=== PATIENT | female | born 1960 | race Caucasian/White ===

== ENCOUNTER → 2017-12-25 | Outpatient (CLI) | payer OTHER ==
[2017-12-25 11:36] LABS: BILIRUBIN NEGATIVE (NEGATIVE); BLOOD 3+ (NEGATIVE); CLARITY CLOUDY (CLEAR); COLOR YELLOW (YELLOW); GLUCOSE NEGATIVE (NEGATIVE); KETONE NEGATIVE (NEGATIVE); LEUKO ESTERASE 3+ (NEGATIVE); NITRITE NEGATIVE (NEGATIVE); SPECIFIC GRAVITY 1.005 (1.005-1.030); UROBILINOGEN 0.2 E.U./dl (0.2-1.0)
[2017-12-25 11:42] LABS: WBC TNTC wbc/hpf (0-5)
== END | disposition home or self-care (01) ==
LOC: LAB 10:26
PROVIDERS: Psychiatry & Neurology Neurology
DX: R30.0 Dysuria (principal)

== ENCOUNTER → 2018-01-10 | Outpatient (CLI) | payer OTHER ==
[2018-01-10 13:12] LABS: BILIRUBIN NEGATIVE (NEGATIVE); BLOOD TRACE-INTACT (NEGATIVE); CLARITY CLEAR (CLEAR); COLOR YELLOW (YELLOW); GLUCOSE NEGATIVE (NEGATIVE); KETONE NEGATIVE (NEGATIVE); LEUKO ESTERASE NEGATIVE (NEGATIVE); NITRITE NEGATIVE (NEGATIVE); PH 6.5 (5.0-9.0); SPECIFIC GRAVITY <= 1.005 (1.005-1.030); UROBILINOGEN 0.2 E.U./dl (0.2-1.0)
[2018-01-10 14:03] LABS: BACTERIA TRACE; WBC 0-2 wbc/hpf (0-5)
== END | disposition home or self-care (01) ==
LOC: LAB 12:33
PROVIDERS: Internal Medicine
DX: N39.0 Urinary tract infection, site not specified (principal)

== ENCOUNTER → 2018-11-29 | Outpatient (CLI) | payer MEDICAID ==
[~2018-11-29] MED LIST: BACLOFEN5 MG PO; CLINDAMYCIN150 MG PO; DOXYCYCLINE100 M3 PO; DURAGESIC1 EAC2 T; KEPPRA1000 MG PO; NEURONTIN400 MG PO; OXYCONTIN80 M1 PO; PHARMASSURE FO0.4 MG PO; PHENERGAN25 M3 PO; PREDNISONE10 MG PO; PRILOSEC20 M1 PO; PROZAC10 MG PO; REMERON30 M1 PO; VITAMIN D-32000 UNI1 PO
--- NOTE | ~2018-11-29 | EKG ---
[place], [place] ELECTROCARDIOGRAM REPORT NAME: GERALDINE MARTINEZ UNIT #: [id number] ROOM: DOCTOR: SEAN DRAFT REPORT BIRTHDATE: [birth year] [facility] Test Date: 2018-11-29 Test Time: 14:03:19 Pat Name: GERALDINE MARTINEZ Department: Room: Gender: F Pizza Delivery: GABBY : 1960 Requested By: MARIE RHODES Order Number: [id number] Reading MD: Sudheer Kelly MD Measurements Intervals [place] Rate: 101 P: 45 AL: 155 QRS: 69 QRSD: 81 T: 10 QT: 396 QTc: 514 Interpretive Statements Sinus tachycardia Borderline T abnormalities, anterior leads Prolonged QT interval Baseline wander in lead(s) II,III,aVF Electronically Signed On 11-29-2018 18:30:02 PST by Sudheer Kelly MD CM:EKGRPT:ELECTROCARDIOGRAM REPORT 1403 1830 MARIE ANDRADEANY DRAFT REPORT MARIE RHODES
[2018-11-29 14:01] LABS: BASO # 0.1 10*3/uL (0.0-0.1); BASO % 0.6 % (0.0-1.0); EOS # 0.2 10*3/uL (0.0-0.4); EOS % 1.1 % (1.0-4.0); HEMATOCRIT 40.6 % (37.0-47.0); HEMOGLOBIN 12.9 g/dl (12.0-16.0); LYMPH # 2.6 10*3/uL (1.3-4.4); LYMPH % 19.7 % (27.0-41.0); MEAN CELL VOLUME 87.9 fl (81.0-99.0); MEAN CORPUSCULAR HGB 27.9 pg (27.0-31.0); MEAN CORPUSCULAR HGB CONC 31.8 g/dl (33.0-37.0); MONO # 0.7 10*3/uL (0.1-1.0); MONO % 4.9 % (3.0-9.0); NEUT # 9.7 10*3/uL (2.3-7.9); NEUT % 72.7 % (47.0-73.0); PLATELET COUNT AUTOMATED 409 10*3/uL (130-400); RED BLOOD COUNT 4.62 10*6/uL (4.10-5.10); RED CELL DISTRI WIDTH 13.4 % (0-14.5); WHITE BLOOD COUNT 13.3 10*3/uL (4.8-10.8)
[2018-11-29 14:15] LABS: ALBUMIN 3.4 gm/dl (3.1-4.5); BILIRUBIN, DIRECT 0.1 mg/dL (0.0-0.2); BUN 7 mg/dl (7-24); CHLORIDE 107 mmol/L (98-107); POTASSIUM 3.9 mmol/L (3.5-5.1); SODIUM 140 mmol/L (136-145)
[2018-11-29 14:30] LABS: ALKALINE PHOSPHATASE 195 U/L (45-117); CREATININE 0.82 mg/dL (0.55-1.02); FREE T4 1.05 ng/dl (0.76-1.46); PHOSPHOROUS 3.1 mg/dL (2.5-4.9); SGOT/AST 41 IU/L (3-35); SGPT/ALT 73 U/L (12-78); TOTAL PROTEIN 8.1 gm/dL (6.4-8.2)
== END | disposition home or self-care (01) ==
PROVIDERS: Internal Medicine
DX: J44.9 Chronic obstructive pulmonary disease, unspecified (principal); D33.2 Benign neoplasm of brain, unspecified; R56.9 Unspecified convulsions

== ENCOUNTER → 2018-12-04 | Day surgery (SDC) | payer MEDICAID ==
[2018-11-29 12:10] VITALS: BP 118/90
[~2018-12-04] VITALS: Ht 170.1 cm; Wt 113.4 kg
[2018-12-04] VITALS (17 sets, daily range): BP systolic 122–167; BP diastolic 63–92
--- NOTE | ~2018-12-04 | O ---
[place], [place] OPERATIVE NOTE NAME: GERALDINE MARTINEZ UNIT #: [id number] ROOM: DOCTOR: EARL ABBOTT DMD BIRTHDATE: [birth year] DOS: PREOPERATIVE DIAGNOSES: Nonrestorable maxillary and mandibular dentition and anxiety. POSTOPERATIVE DIAGNOSES: Nonrestorable maxillary and mandibular dentition and anxiety. ANESTHESIA: General anesthesia with endotracheal intubation. FLUIDS: Minimal. ESTIMATED BLOOD LOSS: Minimal. COMPLICATIONS: None. CONDITION: To PACU, stable. DESCRIPTION OF PROCEDURE: The patient was brought to the OR and placed in supine position. IV and EKG lines were placed. Endotracheal intubation and general anesthesia was administered. The patient was prepped and draped for oral procedures. Risks and benefits were explained to the patient prior to surgery. Clinical exam and x-rays taken, determined nonrestorable maxillary and mandibular dentition. PROCEDURES PERFORMED: Complete extraction of teeth #4, 5, 6, 7, 8, 9, 10, 11, 15, 17, 21, 22, 23, 24, 25, 26, 27, 28 and 29, moderate alveoplasty in the upper right, upper left, lower left and lower right quadrants. Sutured with 4-0 Vicryl. Lavaged x 2. Throat pack removed. The patient left the OR in good condition and went to the PACU. EARL ABBOTT DMD CM:OPRECORD:OPERATIVE NOTE 1132 1224 EARL ABBOTT DMD 12/05/18 1329 interface
== END | disposition home or self-care (01) ==
LOC: SDC 11-29 10:15
DX: K00.7 Teething syndrome (principal); K02.9 Dental caries, unspecified; J44.9 Chronic obstructive pulmonary disease, unspecified; K21.9 Gastro-esophageal reflux disease without esophagitis; I25.2 Old myocardial infarction; E66.01 Morbid (severe) obesity due to excess calories; Z68.41 Body mass index [BMI] 40.0-44.9, adult; Z79.899 Other long term (current) drug therapy; Z98.890 Other specified postprocedural states; Z88.1 Allergy status to other antibiotic agents; Z79.1 Long term (current) use of non-steroidal anti-inflammatories (NSAID)

== ENCOUNTER 2018-12-27 05:15 | Inpatient (IN) | payer MEDICAID ==
[2018-12-27] VITALS (8 sets, daily range): BP systolic 106–162; BP diastolic 48–113
--- NOTE | ~2018-12-27 | PROC NOTE ---
[place], [place] PROCEDURE NOTE NAME: GERALDINE MARTINEZ UNIT #: [id number] ROOM: 404 DOCTOR: VIKTOR BEGUM BIRTHDATE: [birth year] DOS: 12/27/2018 MODIFIED BARIUM SWALLOW LOCATION: [facility]. ROOM: 404. BED: 1. ORDERING PHYSICIAN: Dr. Vivi Robbins. RADIOLOGIST: Dr. Florentino. BACKGROUND INFORMATION: The patient is a 58-year-old female who was seen for modified barium swallow. This test was ordered to rule out aspiration. The patient is admitted with pneumonia and severe sepsis. Further medical history includes brain tumors, dyspnea, GERD, seizures and diverticulitis. The patient is ordered currently a regular diet and thin liquids. For today's assessment, she was alert, but noticeably ill. She endorsed dysphagia, but could not specify what her problems were. The patient had difficulty following commands throughout the procedure. She was receiving oxygen via nasal cannula. Oral peripheral examination was attempted; however, the patient was unable to fully participate, edentulous status was noted. She was not able to perform most of the oral movements attempted. METHODS AND MATERIALS USED FOR THE EXAM: The patient was positioned in the lateral plane and the exam was viewed under fluoroscopy. The patient was presented with a variety of consistencies to assess swallowing skills including applesauce mixed with barium presented in half teaspoon amounts, barium-coated cookie given in bite-size piece and thin liquid barium taken by cup. The patient was unable to hold the cup independently. Therefore, single sips were given by clinician. ORAL PHASE: The patient achieved adequate labial seal around cup and spoon with no anterior loss. Bolus formation and transit were adequate. Mastication of cookie was poor. Piecemeal swallow was observed. The patient was not able to fully complete chewing and swallowing of the cookie and did spit out the remainder of the cookie. Tongue to palate contact was within normal limits. Tongue retraction was within normal limits. Velar functioning was within normal limits with no nasal regurgitation. PHARYNGEAL PHASE: Unremarkable. ESOPHAGEAL PHASE: This phase of the swallow was not formally assessed during this exam. IMPRESSIONS AND RECOMMENDATIONS: Based upon assessment results, this 58-year-old patient presents with a kjng-er-ogkrgzsy oral dysphagia. She had difficulty masticating solid and piecemeal swallow was observed. The patient [place], [place] PROCEDURE NOTE NAME: GERALDINE MARTINEZ UNIT #: [id number] ROOM: 404 DOCTOR: VIKTOR BEGUM BIRTHDATE: [birth year] did spit out some of the solid food. No penetration, aspiration or residue was observed. Recommend the patient receive a pureed diet and thin liquids with use of universal safe swallow precautions. Follow up therapy is recommended with focus on ensuring safety with highest level diet. A message regarding diet recommendation was left for patient's nurse. Thank you very much for this referral. Should you have any questions regarding this patient, please contact the speech pathologist at [phone]. VIKTOR BEGUM CM:PROCNOTE:PROCEDURE NOTE 1423 1450 VIKTOR BEGUM
--- NOTE | ~2018-12-27 | CON ---
[place], [place] REPORT OF CONSULTATION NAME[id number] UNIT #: [id number] ROOM: 427 DOCTOR: CELENA BROOKS MDKALE BIRTHDATE: [birth year] DOS: 12/27/2018 PULMONARY CONSULTATION AND EVALUATION REQUESTING PHYSICIAN: Hospitalist service. REASON FOR CONSULTATION: Assessment of pulmonary infiltration. Possibility of pneumonia. The history was obtained from the patient's . The patient could not give me any history because of the chronic neurologic problems. HISTORY OF PRESENT ILLNESS: This is a 58-year-old white female patient who has been known with history of a brain tumor, which has been treated with stereotactic radiation therapy and brain radiation. She has been noted with chronic left hemiplegia. The patient has been noted with increased congestion and cough about 24 hours prior to admission to the hospital. The patient has been reported some ongoing coughing for the past 3 days as per the patient's . She has been admitted to the hospital on 12/27/2018. The patient has been reported with increased shortness of breath with chest congestion. She was also noted with temperature elevation as well. Concern today is possibly pneumonia. She was brought to the hospital by the EMS. She has been assessed and noted pulmonary infiltration with the CT scan of the chest as well. She has not been noted any symptoms of chest pain or hemoptysis. REVIEW OF SYSTEMS: Cannot be effectively completed because of the patient's lack of direct communication and not answering the questions effectively. PAST MEDICAL HISTORY: 1. Known with a history of glioma of the brain, which has been treated with stereotactic surgery and radiation therapy. 2. History of depression. 3. Gastroesophageal reflux. 4. Morbid obesity. 5. Seizure disorder. PAST SURGICAL HISTORY: 1. Carpal tunnel release. 2. Hip surgery on the neck. 3. Hysterectomy. 4. Cholecystectomy. 5. Back surgery. 6. CyberKnife gamma knife surgery for the glioma of the brain. SOCIAL HISTORY: The patient was noted with tobacco use in the past, but not smoking cigarettes at this time per . She is , lives at home. Denies history of alcohol use or illicit drugs. She has not been reported with history of illicit drug use and alcohol use. MEDICATIONS: Medications at home were noted with use of Duragesic patch, Prozac, Neurontin, Keppra, Remeron, Prilosec, OxyContin, and Phenergan. [place], [place] REPORT OF CONSULTATION NAME: GERALDINE MARTINEZ UNIT #: [id number] ROOM: 427 DOCTOR: KALE RAMIREZ MD BIRTHDATE: [birth year] DRUG ALLERGIES: NOTED ALLERGY TO AMOXICILLIN. PHYSICAL EXAMINATION: GENERAL: A 58-year-old female patient who has been currently resting comfortably on the bed, able to speak some sentences at this time. Using oxygen supplement via nasal cannula. Height of the patient at admission was 5 feet 7 inches, weight of 265 pounds, BMI 41. VITAL SIGNS: Vital signs for the patient which were recorded shows temperature noted at 100.2 degrees Fahrenheit to normal temperature. The respiratory rate of the patient recorded as 32 to 22 later on. The heart rate was noticed with tachycardia, heart rate 131 beats per minute, 112 later on. Blood pressure ranged 162/113 on admission and later on noted in the afternoon, blood pressure 122/58 at 1600 hours. Pulse oxygen saturation was recorded on admission on 6 liters nasal cannula was 93% saturation. HEENT: Examination shows chronic obesity. NECK: Supple. Head was atraumatic. Eyes nonicterus. CARDIOVASCULAR: S1, S2 audible. LUNGS: Scattered crackles of the lung were noted in the right side. ABDOMEN: Soft, obese, nontender. Bowel sounds present. EXTREMITIES: Noted without any edema. Chronic obesity findings. MUSCULOSKELETAL: Without acute deformities. CENTRAL NERVOUS SYSTEM: Right hemiplegia. LABORATORY DATA: CBC on admission, on 12/27/2018, WBC count 17.1, hemoglobin, hematocrit and platelet count were normal. Influenza A and B, nasal washing antigen negative on admission as well. The admission lactic acid 3.6 and followup was noted variably elevated. CMP for the patient of 12/27/2018 on admission, BUN 5, creatinine normal, glucose 121, AST 82, ALT 101, alkaline phosphatase is 240, normal troponin. PT and PTT was noted as normal. Arterial blood gas that was done yesterday, 5 liters, pH 7.36, pCO2 46, pO2 113. Urine drug screen was noted as positive for opiates, which is her home medication. Modified barium swallow was completed this afternoon. The patient was noted as normal study. CT scan of the head was done on 12/27/2018 on admission as well. No acute intracranial pathology. Craniotomy with encephalomalacia of right frontal and the parietal lobes. Low attenuation in the white matter tissue was reported with indeterminate, small ischemic vessel ischemic changes were also described. Chest x-ray of the patient was noted with patchy infiltration of the lung on admission. CT of the chest that was completed yesterday was noted without any evidence of acute pulmonary embolism. Besides it was noted with evidence of patchy nodular infiltration involving significant portion of the right lung as well as pleural base consolidation for the patient and other patchy infiltration as well was noted. There was no significant lymphadenopathy or other abnormalities as well noted in the mediastinal structures. IMPRESSION: 1. The patient will be admitted to the hospital. The patient was noted with multilobar pneumonia, most likely related to the aspiration very likely cause. Mild lymphadenopathy, mediastinal of unclear significance. Mass-like consolidation, most likely representing acute pneumonia at this time. Malignancy was non-suspected. [place], [place] REPORT OF CONSULTATION NAME: GERALDINE MARTINEZ UNIT #: [id number] ROOM: 427 [facility] [birth year] 2. History of glioma of the brain, status post surgery with a right hemiparesis. She has been noted with a normal swallow study with a modified barium swallow, but certainly my question of transient aspiration could lead to the current pneumonic presentation. 3. Signs of acute sepsis was also noted on admission as well. 4. Relative elevation of the right hemidiaphragm, possibility of right diaphragmatic paresis or paralysis cannot be completely excluded. 5. Possibility of obesity, hypoventilation syndrome, and suspicion of obstructive sleep apnea disorder. PLAN OF MANAGEMENT: Community-acquired aspiration management antibiotic would be continued. Continuation of the bronchodilators administration as well. Oxygen supplementation to be continued for the patient to maintain pulse ox 92% or greater for acute hypoxemic respiratory failure. The patient was also noted with hypercapnia, possibility of obesity, hypoventilation, also consideration for obstructive sleep apnea disorder as well. Should require assessment as an outpatient with a diagnostic sleep study as well. Other supportive therapy, plan of management, monitoring all the culture results. Current finding on the CT scan needs to be reassessed for the patient later on with a followup CT scan in about a month or so after the adequate treatment achieved for the pneumonia to exclude any abnormal process in the lungs. Other therapy, plan of management, care plan and treatment. Assessment and management has been discussed with the patient's at the bedside. Thank you for allowing me to participate in the care of the patient. KALE DALLAS MD CM:CONSTR:REPORT OF CONSULTATION 1055 12/29/18 0248 interface
--- NOTE | ~2018-12-27 | PR ---
[place], [place] PROGRESS NOTE NAME: GERALDINE MARTINEZ UNIT #: [id number] ROOM: 427 DOCTOR: CELENA BROOKS MD,KALE BIRTHDATE: [birth year] DOS: 12/29/2018 SUBJECTIVE: The patient has been doing well with current medical management, reduction in the respiratory symptoms. There were no symptoms of fever or chills or hemoptysis reported. Denies symptoms of nausea or vomiting or diarrhea. The coughing of the patient has been subsiding. The of the patient was present. She was continued on antibiotics for the current acute aspiration pneumonia. OBJECTIVE: VITAL SIGNS: For the patient which are recorded showed the temperature noted normal, respiratory rate 18, heart rate 92, blood pressure 113/54. The pulse oxygen saturation of the patient recorded as 98% at rest on room air. HEENT: Chronic obesity. Head was atraumatic. Eye nonicterus. NECK: Supple. CARDIOVASCULAR: S1, S2 audible. LUNGS: Without any wheeze or crackles. ABDOMEN: Soft and nontender. Bowel sounds present. EXTREMITIES: The patient noted without acute edema. IMPRESSION: 1. Resolving pneumonia, clinically for this patient with aspiration. 2. The patient with chronic brain tumor with left hemiplegia. PLAN OF MANAGEMENT: Chest x-ray was ordered to be done today. After assessment of the chest x-ray, if it is showing further improvement and resolution of the pneumonia, discharge planning could be made accordingly. Continue in the meantime other therapy, plan of management, care plan of treatment and therapies. KALE DALLAS MD CM:PNTRANS [id number] KALE BROOKS MD 12/29/181944 interface
--- NOTE | ~2018-12-27 | PR ---
[place], [place] PROGRESS NOTE NAME: GERALDINE MARTINEZ UNIT #: [id number] ROOM: 427 DOCTOR: KALE RAMIREZ MD BIRTHDATE: [birth year] DOS: 12/28/2018 PULMONARY PROGRESS NOTE SUBJECTIVE: The patient was seen and examined on 12/28/2018. She has been noted comfortable without any acute distress, still needing oxygen supplementation nasal cannula, does not state any acute symptoms, the patient has here been asked. She has been continued with antibiotic as well. She has not been noted with any ongoing acute hemodynamic instability. The temperature has been improving to normal temperature, in the last 24 hours, the tachycardia has also improved significantly. Blood pressure noted in the normal range. REVIEW OF SYSTEMS: Cannot be completed. OBJECTIVE: HEENT: Chronic obesity. Head was atraumatic. Eyes nonicterus. NECK: Supple. CARDIOVASCULAR: S1, S2 is audible. LUNGS: The patient was noted without any wheezing. Scattered crackles still noted in the right lung. ABDOMEN: Soft and obese. EXTREMITIES: Chronic obesity. MUSCULOSKELETAL: Chronic deformity. CENTRAL NERVOUS SYSTEM: Previously unchanged. The patient with left hemiplegia. LABORATORY DATA: CBC of this morning, WBC count 20.0, hemoglobin 10.6, hematocrit 33.4, and platelet count was normal. Urine culture was noted without any bacterial growth. CMP this morning, normal BUN and creatinine. Phosphorus 2.3, which was mildly decreased. The albumin is 2.6, which was decreased. AST and ALT noted improving. IMPRESSION: 1. Improving acute sepsis with acute pneumonia, multilobar from aspiration, treated for gram-negative community-acquired infection. 2. Chronic neurologic deficit with a glioma with left hemiparesis. 3. Chronic obesity. 4. Suspicion of obesity hypoventilation syndrome. 5. Acute respiratory failure. PLAN OF MANAGEMENT: Monitor temperature curve. Continuation of antibiotics. Monitoring the results of the culture as well as the blood. No modification of antibiotic at this time will be necessary. Continue Levaquin. Other supportive therapy, plan and management. Titrate oxygen supplementation to maintain pulse oxygen saturation 92% or greater. [place], [place] PROGRESS NOTE NAME: GERALDINE MARTINEZ UNIT #: [id number] ROOM: 427 DOCTOR: KALE RAMIREZ MD BIRTHDATE: [birth year] KALE DALLAS MD CM:ADAMA [id number] KALE BROOKS MD 01/07/19 1049 interface
--- NOTE | ~2018-12-27 | EKG ---
[place], [place] ELECTROCARDIOGRAM REPORT NAME: GERALDINE MARTINEZ UNIT #: [id number] ROOM: 404 DOCTOR: SEAN DRAFT REPORT BIRTHDATE: [birth year] [facility] Test Date: 2018-12-27 Test Time: 05:34:10 Pat Name: GERALDINE MARTINEZ Department: Room: 404 Gender: F Extrusion Bender: : 1960 Requested By: ELENA ESCAMILLA Order Number: [id number] Reading MD: Sudheer Kelly MD Measurements Intervals [place] Rate: 126 P: 44 [place]: 157 QRS: 60 QRSD: 79 T: 255 QT: 302 QTc: 438 Interpretive Statements Sinus tachycardia Aberrant complex Nonspecific repol abnormality, diffuse leads Compared to ECG 11/29/2018 14:03:19 Prolonged QT interval no longer present Electronically Signed On 12-27-2018 17:53:31 PST by Sudheer Kelly MD CM:EKGRPT:ELECTROCARDIOGRAM REPORT 0534 1753 ELENA APONTE DRAFT REPORT ELENA ESCAMILLA DO
[~2018-12-27 05:15] MED LIST changes: -DOXYCYCLINE100 M3 PO; -PHARMASSURE FO0.4 MG PO; -PREDNISONE10 MG PO; -VITAMIN D-32000 UNI1 PO
[2018-12-27 05:56] LABS: BASO # 0.1 10*3/uL (0.0-0.1); BASO % 0.5 % (0.0-1.0); EOS # 0.1 10*3/uL (0.0-0.4); EOS % 0.5 % (1.0-4.0); LYMPH # 1.3 10*3/uL (1.3-4.4); LYMPH % 7.8 % (27.0-41.0); MEAN CELL VOLUME 90.1 fl (81.0-99.0); MEAN CORPUSCULAR HGB 28.6 pg (27.0-31.0); MEAN CORPUSCULAR HGB CONC 31.7 g/dl (33.0-37.0); MONO # 0.6 10*3/uL (0.1-1.0); MONO % 3.5 % (3.0-9.0); NEUT # 14.9 10*3/uL (2.3-7.9); NEUT % 87.2 % (47.0-73.0); PLATELET COUNT AUTOMATED 347 10*3/uL (130-400); RED BLOOD COUNT 4.55 10*6/uL (4.10-5.10); RED CELL DISTRI WIDTH 13.6 % (0-14.5); WHITE BLOOD COUNT 17.1 10*3/uL (4.8-10.8)
--- NOTE | 2018-12-27 06:05 | NUR ---
CRITICAL LACTIC ACID 3.[address] ESCAMILLA.
[2018-12-27 06:16] LABS: ALBUMIN 3.1 gm/dl (3.1-4.5); ALKALINE PHOSPHATASE 214 U/L (45-117); BUN 5 mg/dl (7-24); CHLORIDE 106 mmol/L (98-107); POTASSIUM 3.8 mmol/L (3.5-5.1); SGOT/AST 82 IU/L (3-35); SGPT/ALT 101 U/L (12-78); SODIUM 142 mmol/L (136-145); TOTAL PROTEIN 7.7 gm/dL (6.4-8.2)
[2018-12-27 06:19] LABS: TROPONIN I < 0.015 ng/ml (<0.045)
[2018-12-27 06:29] LABS: ACT PARTIAL THROMBO TIME 22.7 SECONDS (20.8-31.5); INTERNATIONAL NORM RATIO 0.9 (2.0-3.5)
--- NOTE | 2018-12-27 07:10 | NUR ---
REPORT FROM [facility] AT THIS TIME. PATIENT RETURNS FROM CT SCAN. BENCH GRINDER STATES THAT PATIENT HAS BEEN URINARY INCONTINENT. PATIENT HAS BEEN CLEANED UP AT THIS TIME NEW GOWN AND SHEETS. HILLS CATH PLACED INTO PATIENT.
[2018-12-27 08:19] LABS: BILIRUBIN NEGATIVE (NEGATIVE); BLOOD 1+ (NEGATIVE); CLARITY CLEAR (CLEAR); COLOR YELLOW (YELLOW); GLUCOSE NEGATIVE (NEGATIVE); KETONE NEGATIVE (NEGATIVE); LEUKO ESTERASE NEGATIVE (NEGATIVE); NITRITE NEGATIVE (NEGATIVE); PH 5.5 (5.0-9.0); SPECIFIC GRAVITY <= 1.005 (1.005-1.030); UROBILINOGEN 0.2 E.U./dl (0.2-1.0)
[2018-12-27 08:27] LABS: BACTERIA TRACE
--- NOTE | 2018-12-27 09:09 | NUR ---
PATIENT HAS FENTANYL PATCH NOTED TO HER LEFT UPPER ARM.
--- NOTE | 2018-12-27 09:45 | NUR ---
ATTEMPTED TO CALL NURSE FOR PATIENT TRANSPORT TO ROOM.
--- NOTE | 2018-12-27 09:49 | NUR ---
CALLED ADMITTING NURSE PHONE AGAIN. PATIENT TO WAIT 10 MINUTES BEFORE BEING TAKEN TO FLOOR PER NURSES REQUEST.
--- NOTE | 2018-12-27 10:00 | NUR ---
PATIENT TAKEN TO 4TH FLOOR AT THIS TIME BY THIS NURSE.
--- NOTE | 2018-12-27 10:20 | NUR ---
BEDSIDE REPORT GIVEN TO [facility].
--- NOTE | 2018-12-27 10:25 | NUR ---
MED REC UPDATED PER LIST PT PROVIDED FROM CHERRY ANDREWS.
--- NOTE | 2018-12-27 10:41 | NUR ---
DR CHAU MADE AWARE OF CRITICAL LACTIC ACID LEVEL OF 3.0; ALSO THAT PT'S MED REC IS UPDATED AND VERIFIED.
[2018-12-27 11:29] LABS: ABG BASE EXCESS 0.3 mmol/L (-2.0-2.0); ABG HCO3 25.1 mmol/l (22-26); ABG O2 SATURATION 98.1 % (95-97); ARTERIAL BLOOD GAS PCO2 46.2 mmHg (35-45); ARTERIAL BLOOD GAS PH 7.36 (7.35-7.45)
--- NOTE | 2018-12-27 14:11 | NUR ---
SPEECH PATHOLOGY Modified barium swallow completed as per orders. patient is admitted with pneumonia and sepsis. Further medical hx includes seizures, brain tumors and GERD. Patient was alert but ill and with difficulty following commands throughout procedure. She endorsed difficulty with swallowing but was not able to specify what her problems were. She was assessed with puree, solid and thin liquid. Mild-moderate oral dysphagia was displayed. Patient had difficulty masticating solid (cookie) with piecemeal swallow observed. She was not able to fully chew and swallow the cookie and spit out the remainder. There was no penetration, aspiration or residue observed. Recommend a pureed diet and thin liquid with use of universal safe swallow precautions. Follow up therapy is recommended to focus on safety with highest level diet. A message regarding diet recommendation was left for patient's nurse. Dictated report to follow. Thank you for this referral. VIKTOR BEGUM MSCCC-BRAID MAKER
[2018-12-27 14:18] LABS: URINE AMPHETAMINES < 1000 (1000ng/ml); URINE BARBITURATES < 200 (200ng/ml); URINE BENZODIAZEPINES < 200 (200ng/ml); URINE CANNABINOIDS (THC) < 50 (50ng/ml); URINE COCAINE < 300 (300ng/ml); URINE METHADONE < 300 (300ng/ml)
[2018-12-27 14:20] LABS: URINE OPIATES > 300 (300ng/ml)
[2018-12-27 14:23] LABS: URINE PHENCYCLIDINE < 25 (25ng/ml)
--- NOTE | 2018-12-27 15:08 | NUR ---
MEDICATED WITH TYLENOL PER PRN ORDER FOR COMPLAINTS OF HEADACHE, ALSO GIVEN FOR LOW GRADE TEMP. FENTANYL PATCH CHANGED AT THIS TIME PER ORDER, NEW PATCH APPLIED TO LEFT ARM.
--- NOTE | 2018-12-27 15:23 | NUR ---
SPEECH RECOMMENDED PUREED DIET AND THIN LIQUIDS, DR CHAU INFORMED.
[2018-12-27] MEDS ORDERED: BACLOFEN5 MG PO (16:56)
--- NOTE | 2018-12-27 17:00 | NUR ---
DR DALLAS NOTIFIED OF NEW CONSULT. STATES HE WILL BE IN TO SEE PT.
--- NOTE | 2018-12-27 17:18 | NUR ---
DR CHAU MADE AWARE THAT BACLOFEN WAS MISSING FROM PT'S MED REC, BACLOFEN ADDED PER CLAIM HISTORY.
[2018-12-28] VITALS: BP 96/46
[2018-12-28 06:12] LABS: ALBUMIN 2.6 gm/dl (3.1-4.5); BUN 9 mg/dl (7-24); CHLORIDE 111 mmol/L (98-107); CHOLESTEROL 145 mg/dL (<200); CREATININE 0.69 mg/dL (0.55-1.02); PHOSPHOROUS 2.3 mg/dL (2.5-4.9); POTASSIUM 3.6 mmol/L (3.5-5.1); SGOT/AST 57 IU/L (3-35); SGPT/ALT 87 U/L (12-78); SODIUM 144 mmol/L (136-145); TRIGLYCERIDES 89 mg/dl (<150); VLDL CHOLESTEROL 18 mg/dL (6-40)
[2018-12-28 06:19] LABS: ALKALINE PHOSPHATASE 146 U/L (45-117); FREE T4 0.95 ng/dl (0.76-1.46); HDL CHOLESTEROL 42 mg/dl (40-60); LDL CHOLESTEROL 85 mg/dL (9-159); THYROID STIM HORMONE (HS) 0.509 uIU/ml (0.358-4.75); TOTAL PROTEIN 6.5 gm/dL (6.4-8.2)
[2018-12-28 07:18] LABS: VITAMIN D, 25-HYDROXY 8.7 ng/mL (30-100)
[2018-12-28 07:57] LABS: BASO % 0.2 % (0.0-1.0); EOS % 0.1 % (1.0-4.0); LYMPH # 2.3 10*3/uL (1.3-4.4); LYMPH % 11.3 % (27.0-41.0); MEAN CELL VOLUME 90.3 fl (81.0-99.0); MEAN CORPUSCULAR HGB 28.6 pg (27.0-31.0); MEAN CORPUSCULAR HGB CONC 31.7 g/dl (33.0-37.0); MEAN PLATELET VOLUME 9.7 fl (9.6-12.3); MONO # 1.1 10*3/uL (0.1-1.0); MONO % 5.3 % (3.0-9.0); NEUT # 16.5 10*3/uL (2.3-7.9); NEUT % 82.4 % (47.0-73.0); PLATELET COUNT AUTOMATED 333 10*3/uL (130-400); RED CELL DISTRI WIDTH 14.2 % (0-14.5)
[2018-12-28 08:00] VITALS: BP 104/62
[2018-12-28 08:15] LABS: HEMATOCRIT 33.4 % (37.0-47.0); HEMOGLOBIN 10.6 g/dl (12.0-16.0)
--- NOTE | 2018-12-28 08:50 | NUR ---
Occupational Therapy evaluation completed on 4 with full eval to follow. Precautions include fall risk, bed alarm,seizure prec,impulsive, impaired cognition,max/dep +2 xfers, high complexity level 38690 via chart review, testing and evaluation Recommend OT per POC and SNF to enable improved ADLs, functional mobility and safety for return home w/. Thank you for this referral. Belen Haro OTR/l
--- NOTE | 2018-12-28 09:00 | NUR ---
Composition Tile Layer in to talk to patient. Patient states lives at home with . There are no steps in the home. Physician: jeb [facility]acy: [facility] Home health services: doesn't think there is any Patient's level of ADLs: MODERATE ASSIST Patient has working utilities: all working DME: quad cane Follow-up physician's appointment after d/c: will be made by hospitalist nurse director upon discharge Does patient want to access PORTAL?: no Discharge plan discussed with patient, patient states she lives at home, discussed with her a discharge plan and she wasn't sure if she needed anything, will talk with regarding discharge plan. JC TSANG
--- NOTE | 2018-12-28 09:06 | NUR ---
PHYSICAL THERAPY PAtient evaluated on 4, full evaluation to follow. Continue with PT as per plan of care with fall, max(A) x 2, left hemiparesis and alarms prcautions. Recommend flores to chair/bed and staff aware. May benefit from SNF for impaired funcitional mobility. PAtient is high complexity via chart review, tests and evaluation: 10004. Thank you for this referral. Luna Espinosa,PT
--- NOTE | 2018-12-28 10:26 | NUR ---
PT'S HERE AT THIS TIME, STATING SHE HAS TO USE THE BEDSIDE COMMODE, EXPLAINED TO THAT PT WAS EVALUATED BY THERAPY TODAY AND THEY RECCOMEND A MARIIA LIFT, PT IS A MAX ASSIST AND A HIGH FALL RISK, PT DOES NOT BEAR HER WEIGHT WITH HER LEGS. INSISTENT HE GETS HER UP AND ABOUT ALL THE TIME AT HOME AND HE WILL GET HER UP. ATTEMPTED TO GET PT UP TO BEDSIDE, PT EXTREMELY UNSTEADY AND PT ALMOST FELL, STAFF ASSISTED WITH PT. ENCOURAGED TO CALL TO CALL STAFF TO ASSIST HIM WITH PT TO ATTEMPT PREVENTING FALLS, EXPLAINED WE COULD UTILIZE A BEDPAN UNTIL PT REGAINS SOME OF HER STRENGTH, STATES HE WILL GET HER UP. BED ALARM MAINTAINED FOR SAFETY. DR MARTINEZ UPDATED ON SITUATION.
--- NOTE | 2018-12-28 13:30 | NUR ---
INSISTENT ON WALKING PT TO BATHROOM, PT VERY UNSTEADY AND FEET APPEAR TO BE SLIPPING FROM UNDER HER. WAS SUCCESSFUL WITH TRANSFER, ALTHOUGH RE-EDUCATED ON USE OF BEDPAN FOR SAFETY. STATES HE GETS HER UP AT HOME AND WANTS TO KEEP HER MOVING. BED ALARM REACTIVATED, ENCOURAGED TO CALL FOR ASSISTANCE.
--- NOTE | 2018-12-28 13:49 | NUR ---
SPEECH THERAPY Patient seen this morning at breakfast. Patient reclined upon clinician arrival and required re-positioning to an upright position. Patient demonstrating imulsive rate of intake and sip size during treatment. As patient was being reclined back for repositioning, patient reached for her drink and began taking sips in a reclined position. When repositioned upright in bed, patient continued to demonstrate impulsive rate of intake and sip size. Patient required cues to slow down rate of intake and alternate between solids and liquids. Patient demonstrating tolerance of puree diet and thin liquids as no overt s/s of penetration/aspiration or oral residue following meal observed. However, patient requires cues to perform safe swallowing strategies such as slow rate of intake, small bites and sips, and sitting in upright position during all PO intake. Currently patient appears to tolerate recommended diet, but with reduced levels of safety awarness. Continue short term treatment to increase independence of safe swallowing strategies. Ramona Erazo MA [employer] MACHINE OPERATOR
[2018-12-28 16:00] VITALS: BP 122/98
[2018-12-28 20:00] VITALS: BP 130/74
[2018-12-29] VITALS: BP 120/73
[2018-12-29 06:20] LABS: BASO # 0.1 10*3/uL (0.0-0.1); BASO % 0.5 % (0.0-1.0); EOS # 0.1 10*3/uL (0.0-0.4); EOS % 0.5 % (1.0-4.0); HEMATOCRIT 33.9 % (37.0-47.0); HEMOGLOBIN 10.5 g/dl (12.0-16.0); LYMPH # 3.1 10*3/uL (1.3-4.4); LYMPH % 19.8 % (27.0-41.0); MEAN CELL VOLUME 90.9 fl (81.0-99.0); MEAN CORPUSCULAR HGB 28.2 pg (27.0-31.0); MEAN PLATELET VOLUME 9.6 fl (9.6-12.3); MONO # 1.1 10*3/uL (0.1-1.0); MONO % 7.2 % (3.0-9.0); NEUT # 11.3 10*3/uL (2.3-7.9); NEUT % 71.2 % (47.0-73.0); PLATELET COUNT AUTOMATED 332 10*3/uL (130-400); RED BLOOD COUNT 3.73 10*6/uL (4.10-5.10); RED CELL DISTRI WIDTH 14.6 % (0-14.5); WHITE BLOOD COUNT 15.8 10*3/uL (4.8-10.8)
[2018-12-29 06:47] LABS: ALBUMIN 2.7 gm/dl (3.1-4.5); ALKALINE PHOSPHATASE 140 U/L (45-117); BUN 11 mg/dl (7-24); CHLORIDE 111 mmol/L (98-107); CREATININE 0.79 mg/dL (0.55-1.02); POTASSIUM 3.6 mmol/L (3.5-5.1); SGOT/AST 38 IU/L (3-35); SGPT/ALT 74 U/L (12-78); SODIUM 144 mmol/L (136-145); TOTAL PROTEIN 6.6 gm/dL (6.4-8.2)
[2018-12-29 06:48] LABS: PHOSPHOROUS 2.5 mg/dL (2.5-4.9)
[2018-12-29 08:00] VITALS: BP 113/54
--- NOTE | 2018-12-29 10:59 | NUR ---
PT SENT TO XRAY VIA CART
[2018-12-29 12:00] VITALS: BP 148/90
--- NOTE | 2018-12-29 12:01 | NUR ---
PHYSICAL THERAPY Attempted to see pt this date-- pt's states she has been out of bed already today and may be going home; pt also states she has been out of bed and just wanted to relax. Diane Lei, WILL CALL CLERK
[2018-12-29] MEDS ORDERED: DOXYCYCLINE100 M3 PO (12:04)
[2018-12-29] MEDS ORDERED: PREDNISONE10 MG PO (12:04)
[2018-12-29] MEDS ORDERED: PHARMASSURE FO0.4 MG PO (12:04)
[2018-12-29] MEDS ORDERED: VITAMIN D-32000 UNI1 PO (12:05)
--- NOTE | 2018-12-29 13:36 | NUR ---
pt iv infiltrated, attempted to start iv x2, unsuccessful. dr. meeks made aware.
--- NOTE | 2018-12-29 14:41 | NUR ---
IV REMOVED, AWARE PT WILL BE D/C HOME TODAY. NEW RX SENT TO PHARMACY AND FILLED, GOING TO RETURN TO SERVICE INSPECTOR NEW RX AND THEN WILL ASSIST PATIENT INTO WHEELCHAIR AND WILL TAKE HER HOME VIA CAR.
--- NOTE | 2018-12-29 14:49 | NUR ---
Discharge instructions reviewed with patient/family. Patient receptive and verbalizes understanding. Follow-up care understood. Written instructions given to patient/family. SMITHA BROWN
--- NOTE | 2018-12-29 15:01 | NUR ---
pt getting her dressed and will get her in the wheelchair and take her home via car
--- NOTE | 2018-12-29 15:15 | NUR ---
discharged via wheelchair
--- NOTE | 2018-12-31 07:50 | NUR ---
PHYSICAL THERAPY CO-SIGN I approve of the Phyical Therapy notes written above. EMMETT GALINDO PT
== END 2018-12-29 15:15 | disposition home or self-care (01) | DRG 871 ==
LOC: ED 05:15 → 4E 09:13 → EDHOLD 09:13 → 4E 09:20
PROVIDERS: Emergency Medicine; Internal Medicine; Student in an Organized Health Care Education/Training Program; ADMIT Internal Medicine
PROC: BD1BYZZ Fluoroscopy of Mouth/Oropharynx using Other Contrast (ICD-10-PCS; principal; 2018-12-27)
PROC: BD11YZZ Fluoroscopy of Esophagus using Other Contrast (ICD-10-PCS; 2018-12-27)
DX: A41.9 Sepsis, unspecified organism (principal); J18.9 Pneumonia, unspecified organism; J96.02 Acute respiratory failure with hypercapnia; E87.2 Acidosis; E44.1 Mild protein-calorie malnutrition; Z68.41 Body mass index [BMI] 40.0-44.9, adult; C71.9 Malignant neoplasm of brain, unspecified; R65.20 Severe sepsis without septic shock; K21.9 Gastro-esophageal reflux disease without esophagitis; E66.01 Morbid (severe) obesity due to excess calories; F32.9 Major depressive disorder, single episode, unspecified; G40.909 Epilepsy, unspecified, not intractable, without status epilepticus; G56.00 Carpal tunnel syndrome, unspecified upper limb; R74.0 Nonspecific elevation of levels of transaminase and lactic acid dehydrogenase [LDH]; D72.819 Decreased white blood cell count, unspecified; R73.9 Hyperglycemia, unspecified; R31.21 Asymptomatic microscopic hematuria; G89.3 Neoplasm related pain (acute) (chronic); E66.9 Obesity, unspecified; E87.8 Other disorders of electrolyte and fluid balance, not elsewhere classified; E55.9 Vitamin D deficiency, unspecified; D64.9 Anemia, unspecified; E53.8 Deficiency of other specified B group vitamins; Z90.710 Acquired absence of both cervix and uterus; Z90.49 Acquired absence of other specified parts of digestive tract; Z87.891 Personal history of nicotine dependence; Z88.1 Allergy status to other antibiotic agents

== ENCOUNTER → 2019-11-01 | Outpatient (CLI) | payer MEDICAID ==
[~2019-11-01] MED LIST changes: +DOXYCYCLINE100 M3 PO; +PHARMASSURE FO0.4 MG PO; +PREDNISONE10 MG PO; +VITAMIN D-32000 UNI1 PO
[2019-11-01 14:20] LABS: CREATININE 0.79 mg/dL (0.55-1.02)
== END | disposition home or self-care (01) ==
LOC: MRI 13:37
PROVIDERS: Radiology Diagnostic Radiology
DX: C71.9 Malignant neoplasm of brain, unspecified (principal)

== ENCOUNTER 2020-05-24 14:14 | Emergency (ER) | payer MEDICAID ==
[2020-05-24 14:48] LABS: BASO # 0.1 10*3/uL (0.0-0.1); BASO % 0.4 % (0.0-1.0); EOS % 0.1 % (1.0-4.0); HEMATOCRIT 40.7 % (37.0-47.0); LYMPH # 0.7 10*3/uL (1.3-4.4); LYMPH % 3.6 % (27.0-41.0); MEAN CELL VOLUME 86.8 fl (81.0-99.0); MEAN CORPUSCULAR HGB 27.9 pg (27.0-31.0); MEAN CORPUSCULAR HGB CONC 32.2 g/dl (33.0-37.0); MEAN PLATELET VOLUME 9.1 fl (9.6-12.3); MONO # 1.1 10*3/uL (0.1-1.0); MONO % 5.6 % (3.0-9.0); NEUT # 17.9 10*3/uL (2.3-7.9); NEUT % 89.7 % (47.0-73.0); PLATELET COUNT AUTOMATED 336 10*3/uL (130-400); RED BLOOD COUNT 4.69 10*6/uL (4.10-5.10); RED CELL DISTRI WIDTH 14.1 % (0-14.5); WHITE BLOOD COUNT 19.9 10*3/uL (4.8-10.8)
[2020-05-24 15:05] LABS: ALBUMIN 3.3 gm/dl (3.1-4.5); ALKALINE PHOSPHATASE 176 U/L (45-117); BUN 8 mg/dl (7-24); CHLORIDE 105 mmol/L (98-107); CREATININE 0.88 mg/dL (0.55-1.02); SGOT/AST 53 IU/L (3-35); SGPT/ALT 75 U/L (12-78); SODIUM 140 mmol/L (136-145)
[2020-05-24 15:54] LABS: BILIRUBIN NEGATIVE (NEGATIVE); CLARITY CLEAR (CLEAR); COLOR YELLOW (YELLOW); GLUCOSE NEGATIVE (NEGATIVE)
[2020-05-24 15:55] LABS: BLOOD 1+ (NEGATIVE); KETONE NEGATIVE (NEGATIVE); LEUKO ESTERASE NEGATIVE (NEGATIVE); NITRITE NEGATIVE (NEGATIVE); PH 7.5 (5.0-9.0); UROBILINOGEN 0.2 E.U./dl (0.2-1.0)
[2020-05-24 15:56] LABS: BACTERIA TRACE
== END 2020-05-24 18:27 | disposition home or self-care (01) ==
LOC: ED 14:14
PROVIDERS: Emergency Medicine
DX: D72.829 Elevated white blood cell count, unspecified (principal); K21.9 Gastro-esophageal reflux disease without esophagitis; Z88.1 Allergy status to other antibiotic agents; Z79.899 Other long term (current) drug therapy; Z87.891 Personal history of nicotine dependence

== ENCOUNTER 2020-05-26 08:37 | Inpatient (IN) | payer MEDICAID ==
[2020-05-26] VITALS (7 sets, daily range): BP systolic 101–127; BP diastolic 47–69
[~2020-05-26] VITALS: Ht 167.6 cm; Wt 126.8 kg
[2020-05-26 09:06] LABS: BASO # 0.1 10*3/uL (0.0-0.1); BASO % 0.3 % (0.0-1.0); EOS % 0.1 % (1.0-4.0); HEMATOCRIT 38.9 % (37.0-47.0); LYMPH # 1.2 10*3/uL (1.3-4.4); LYMPH % 5.9 % (27.0-41.0); MEAN CELL VOLUME 86.8 fl (81.0-99.0); MEAN CORPUSCULAR HGB 27.7 pg (27.0-31.0); MEAN CORPUSCULAR HGB CONC 31.9 g/dl (33.0-37.0); MEAN PLATELET VOLUME 9.2 fl (9.6-12.3); MONO # 0.7 10*3/uL (0.1-1.0); MONO % 3.3 % (3.0-9.0); NEUT # 18.7 10*3/uL (2.3-7.9); NEUT % 89.4 % (47.0-73.0); PLATELET COUNT AUTOMATED 300 10*3/uL (130-400); RED BLOOD COUNT 4.48 10*6/uL (4.10-5.10); RED CELL DISTRI WIDTH 14.3 % (0-14.5); WHITE BLOOD COUNT 20.8 10*3/uL (4.8-10.8)
[2020-05-26 09:17] LABS: ACT PARTIAL THROMBO TIME 30.8 SECONDS (20.0-32.1); INTERNATIONAL NORM RATIO 1.1 (2.0-3.5)
[2020-05-26 09:22] LABS: ALBUMIN 2.6 gm/dl (3.1-4.5); ALKALINE PHOSPHATASE 151 U/L (45-117); BUN 13 mg/dl (7-24); CHLORIDE 104 mmol/L (98-107); CREATININE 1.06 mg/dL (0.55-1.02); POTASSIUM 3.4 mmol/L (3.5-5.1); SGOT/AST 44 IU/L (3-35); SGPT/ALT 60 U/L (12-78); SODIUM 138 mmol/L (136-145); TOTAL PROTEIN 7.4 gm/dL (6.4-8.2)
[2020-05-26 09:27] LABS: TROPONIN I < 0.015 ng/ml (<0.045)
[2020-05-26 12:28] LABS: BACTERIA 3+; BILIRUBIN NEGATIVE (NEGATIVE); BLOOD 2+ (NEGATIVE); CLARITY SL CLOUDY (CLEAR); COLOR YELLOW (YELLOW); GLUCOSE NEGATIVE (NEGATIVE); KETONE NEGATIVE (NEGATIVE); LEUKO ESTERASE 1+ (NEGATIVE); NITRITE POSITIVE (NEGATIVE); UROBILINOGEN 0.2 E.U./dl (0.2-1.0); WBC TNTC wbc/hpf (0-5)
[2020-05-26] MEDS ORDERED: GABAPENTIN100 M2 PO (12:54)
[2020-05-26] MEDS ORDERED: COLACE100 MG PO (13:02)
[2020-05-27] VITALS: BP 118/70
[2020-05-27 07:09] LABS: BASO % 0.3 % (0.0-1.0); EOS # 0.1 10*3/uL (0.0-0.4); EOS % 0.5 % (1.0-4.0); HEMATOCRIT 37.1 % (37.0-47.0); LYMPH # 1.9 10*3/uL (1.3-4.4); LYMPH % 12.7 % (27.0-41.0); MEAN CELL VOLUME 89.2 fl (81.0-99.0); MEAN CORPUSCULAR HGB 27.6 pg (27.0-31.0); MEAN PLATELET VOLUME 9.3 fl (9.6-12.3); MONO # 0.7 10*3/uL (0.1-1.0); NEUT # 11.8 10*3/uL (2.3-7.9); NEUT % 80.4 % (47.0-73.0); PLATELET COUNT AUTOMATED 274 10*3/uL (130-400); RED BLOOD COUNT 4.16 10*6/uL (4.10-5.10); RED CELL DISTRI WIDTH 14.6 % (0-14.5); WHITE BLOOD COUNT 14.7 10*3/uL (4.8-10.8)
[2020-05-27 07:14] LABS: ACT PARTIAL THROMBO TIME 30.4 SECONDS (20.0-32.1)
[2020-05-27 07:35] LABS: ALBUMIN 2.3 gm/dl (3.1-4.5); ALKALINE PHOSPHATASE 162 U/L (45-117); BUN 8 mg/dl (7-24); CHLORIDE 108 mmol/L (98-107); CREATININE 0.79 mg/dL (0.55-1.02); POTASSIUM 3.6 mmol/L (3.5-5.1); SGOT/AST 116 IU/L (3-35); SODIUM 140 mmol/L (136-145); TOTAL PROTEIN 6.9 gm/dL (6.4-8.2)
[2020-05-27 07:38] LABS: SGPT/ALT 93 U/L (12-78)
[2020-05-27 08:00] VITALS: BP 120/52
[2020-05-27 12:00] VITALS: BP 113/68
[2020-05-27 16:00] VITALS: BP 104/67
[2020-05-27 20:00] VITALS: BP 116/53
[2020-05-27 22:59] LABS: BILIRUBIN NEGATIVE (NEGATIVE); BLOOD 2+ (NEGATIVE); CLARITY SL CLOUDY (CLEAR); COLOR YELLOW (YELLOW); GLUCOSE NEGATIVE (NEGATIVE); KETONE NEGATIVE (NEGATIVE); LEUKO ESTERASE 2+ (NEGATIVE); NITRITE NEGATIVE (NEGATIVE); SPECIFIC GRAVITY 1.015 (1.005-1.030); UROBILINOGEN 0.2 E.U./dl (0.2-1.0)
[2020-05-27 23:14] LABS: BACTERIA 1+; RBC 31-40 rbc/hpf (0-2); WBC 41-50 wbc/hpf (0-5)
[2020-05-28] VITALS: BP 120/80
[2020-05-28 06:15] LABS: BASO # 0.1 10*3/uL (0.0-0.1); BASO % 0.5 % (0.0-1.0); EOS # 0.2 10*3/uL (0.0-0.4); EOS % 1.8 % (1.0-4.0); HEMATOCRIT 38.4 % (37.0-47.0); LYMPH % 17.1 % (27.0-41.0); MEAN CELL VOLUME 89.9 fl (81.0-99.0); MEAN CORPUSCULAR HGB 27.4 pg (27.0-31.0); MEAN CORPUSCULAR HGB CONC 30.5 g/dl (33.0-37.0); MEAN PLATELET VOLUME 9.1 fl (9.6-12.3); MONO # 0.9 10*3/uL (0.1-1.0); NEUT # 8.3 10*3/uL (2.3-7.9); NEUT % 71.5 % (47.0-73.0); PLATELET COUNT AUTOMATED 297 10*3/uL (130-400); RED BLOOD COUNT 4.27 10*6/uL (4.10-5.10); RED CELL DISTRI WIDTH 14.6 % (0-14.5); WHITE BLOOD COUNT 11.6 10*3/uL (4.8-10.8)
[2020-05-28 06:30] LABS: ALBUMIN 2.3 gm/dl (3.1-4.5); ALKALINE PHOSPHATASE 178 U/L (45-117); BUN 6 mg/dl (7-24); CHLORIDE 108 mmol/L (98-107); POTASSIUM 3.7 mmol/L (3.5-5.1); SGOT/AST 102 IU/L (3-35); SGPT/ALT 119 U/L (12-78); SODIUM 142 mmol/L (136-145); TOTAL PROTEIN 6.9 gm/dL (6.4-8.2)
[2020-05-28 08:00] VITALS: BP 126/64
[2020-05-28 12:00] VITALS: BP 130/66
[2020-05-28 16:00] VITALS: BP 139/70
[2020-05-28 20:00] VITALS: BP 126/66
[2020-05-29] VITALS: BP 127/67
[2020-05-29 04:00] VITALS: BP 115/52
[2020-05-29 09:28] LABS: ALBUMIN 2.1 gm/dl (3.1-4.5); ALKALINE PHOSPHATASE 175 U/L (45-117); BUN 5 mg/dl (7-24); CHLORIDE 108 mmol/L (98-107); POTASSIUM 3.6 mmol/L (3.5-5.1); SGOT/AST 76 IU/L (3-35); SGPT/ALT 107 U/L (12-78); SODIUM 143 mmol/L (136-145); TOTAL PROTEIN 6.8 gm/dL (6.4-8.2)
[2020-05-29 09:33] LABS: BASO # 0.1 10*3/uL (0.0-0.1); BASO % 0.6 % (0.0-1.0); EOS # 0.2 10*3/uL (0.0-0.4); EOS % 1.8 % (1.0-4.0); HEMATOCRIT 36.8 % (37.0-47.0); LYMPH # 1.5 10*3/uL (1.3-4.4); MEAN CELL VOLUME 88.9 fl (81.0-99.0); MEAN CORPUSCULAR HGB 27.5 pg (27.0-31.0); MEAN PLATELET VOLUME 9.1 fl (9.6-12.3); MONO # 0.8 10*3/uL (0.1-1.0); MONO % 7.4 % (3.0-9.0); NEUT # 7.7 10*3/uL (2.3-7.9); NEUT % 73.9 % (47.0-73.0); PLATELET COUNT AUTOMATED 309 10*3/uL (130-400); RED BLOOD COUNT 4.14 10*6/uL (4.10-5.10); RED CELL DISTRI WIDTH 14.6 % (0-14.5); WHITE BLOOD COUNT 10.5 10*3/uL (4.8-10.8)
[2020-05-29 12:00] VITALS: BP 118/68
== END 2020-05-29 15:08 | disposition other institution (70) | DRG 720 ==
LOC: ED 08:37 → EDHOLD 11:13 → 5E 11:13
PROVIDERS: Emergency Medicine; Family Medicine; Hospitalist; Student in an Organized Health Care Education/Training Program; ADMIT Internal Medicine
DX: A41.89 Other specified sepsis (principal); R65.20 Severe sepsis without septic shock; N17.9 Acute kidney failure, unspecified; E87.6 Hypokalemia; R73.9 Hyperglycemia, unspecified; R74.0 Nonspecific elevation of levels of transaminase and lactic acid dehydrogenase [LDH]; N39.0 Urinary tract infection, site not specified; K21.9 Gastro-esophageal reflux disease without esophagitis; G40.909 Epilepsy, unspecified, not intractable, without status epilepticus; E66.01 Morbid (severe) obesity due to excess calories; E55.9 Vitamin D deficiency, unspecified; K83.8 Other specified diseases of biliary tract; F32.9 Major depressive disorder, single episode, unspecified; B95.5 Unspecified streptococcus as the cause of diseases classified elsewhere; K83.1 Obstruction of bile duct; B95.2 Enterococcus as the cause of diseases classified elsewhere; E53.8 Deficiency of other specified B group vitamins; L03.116 Cellulitis of left lower limb; G89.29 Other chronic pain; E43 Unspecified severe protein-calorie malnutrition; B00.1 Herpesviral vesicular dermatitis; Z68.41 Body mass index [BMI] 40.0-44.9, adult; Z88.1 Allergy status to other antibiotic agents; Z90.49 Acquired absence of other specified parts of digestive tract; Z90.710 Acquired absence of both cervix and uterus; Z98.891 History of uterine scar from previous surgery; Z87.891 Personal history of nicotine dependence; Z79.899 Other long term (current) drug therapy; Z88.0 Allergy status to penicillin

== ENCOUNTER → 2020-08-21 | Outpatient (CLI) | payer MEDICAID ==
[~2020-08-21] MED LIST changes: +COLACE100 MG PO; +GABAPENTIN100 M2 PO
== END | disposition home or self-care (01) ==
LOC: ORTHO 13:32
PROVIDERS: ATTEND Psychiatry & Neurology Psychiatry
DX: M25.512 Pain in left shoulder (principal)

== ENCOUNTER → 2020-12-21 | Outpatient (CLI) | payer MEDICAID ==
[2020-12-21 12:21] LABS: ALBUMIN 3.4 gm/dl (3.1-4.5); BILIRUBIN, DIRECT 0.2 mg/dL (0.0-0.2); TOTAL PROTEIN 7.7 gm/dL (6.4-8.2)
== END | disposition home or self-care (01) ==
LOC: LAB 11:47
PROVIDERS: ATTEND Internal Medicine Gastroenterology
DX: Z01.812 Encounter for preprocedural laboratory examination (principal); K83.8 Other specified diseases of biliary tract

== ENCOUNTER → 2021-02-05 | Outpatient (CLI) | payer MEDICAID ==
[2021-02-05 12:55] LABS: BUN 9 mg/dl (7-24); CREATININE 0.78 mg/dL (0.55-1.02)
== END | disposition home or self-care (01) ==
LOC: MRI 02-01 13:00 → LAB 12:29 → MRI 13:00
PROVIDERS: ATTEND Specialist
DX: C71.9 Malignant neoplasm of brain, unspecified (principal); Z98.890 Other specified postprocedural states

== ENCOUNTER 2023-06-09 22:12 | Inpatient (IN) | payer OTHER ==
[~2023-06-09] VITALS: Ht 167.6 cm; Wt 75.1 kg
[~2023-06-09 22:12] MED LIST changes: +Duragesic 50 M50 MCG TD; +LORAZEPAM2 MG PO; +MORPHINE SULFA100 MG PO; +MORPHINE SULFAT15 MG PO
[2023-06-09 22:27] VITALS: BP 133/66
[2023-06-09 22:51] LABS: BASO % 0.2 % (0.0-1.0); EOS % 0.2 % (1.0-4.0); HEMATOCRIT 32.5 % (37.0-47.0); LYMPH # 1.5 10*3/uL (1.3-4.4); LYMPH % 9.6 % (27.0-41.0); MEAN CORPUSCULAR HGB 29.7 pg (27.0-31.0); MEAN CORPUSCULAR HGB CONC 30.5 g/dl (33.0-37.0); MONO # 0.9 10*3/uL (0.1-1.0); MONO % 5.9 % (3.0-9.0); NEUT % 82.5 % (47.0-73.0); PLATELET COUNT AUTOMATED 511 10*3/uL (130-400); RED BLOOD COUNT 3.33 10*6/uL (4.10-5.10); RED CELL DISTRI WIDTH 14.6 % (0-14.5); WHITE BLOOD COUNT 15.7 10*3/uL (4.8-10.8)
[2023-06-09 22:54] LABS: MEAN CELL VOLUME 97.6 fl (81.0-99.0)
[2023-06-09 23:05] LABS: ALKALINE PHOSPHATASE 686 U/L (46-116); BUN 10 mg/dl (9-23); CHLORIDE 102 mmol/L (98-107); POTASSIUM 3.2 mmol/L (3.4-5.1); SGPT/ALT 51 U/L (10-49); TOTAL PROTEIN 7.2 gm/dL (6.0-8.0)
[2023-06-09 23:21] LABS: BILIRUBIN 3+ (Negative); BLOOD 2+ (Negative); CLARITY Turbid (Clear); COLOR Dark Yellow (Yellow); GLUCOSE Negative (Negative); KETONE Negative (Negative); LEUKO ESTERASE 3+ (Negative); NITRITE Positive (Negative); SPECIFIC GRAVITY 1.025 (1.001-1.030)
[2023-06-09 23:30] VITALS: BP 138/78
[2023-06-09 23:35] LABS: BACTERIA 2+; WBC TNTC wbc/hpf (0-5)
[2023-06-10] VITALS (7 sets, daily range): BP systolic 133–143; BP diastolic 67–79
[2023-06-10] MEDS ORDERED: LORAZEPAM2 MG PO (03:59)
== END 2023-06-10 18:28 | disposition hospice, inpatient (51) | DRG 466 ==
LOC: ED 22:12 → EDHOLD 06-10 01:08 → ICCU 06-10 04:41
PROVIDERS: Internal Medicine; ADMIT Family Medicine; ATTEND Family Medicine
DX: T83.511A Infection and inflammatory reaction due to indwelling urethral catheter, initial encounter (principal); A41.9 Sepsis, unspecified organism; N39.0 Urinary tract infection, site not specified; E87.6 Hypokalemia; R74.01 Elevation of levels of liver transaminase levels; E43 Unspecified severe protein-calorie malnutrition; C79.9 Secondary malignant neoplasm of unspecified site; R65.20 Severe sepsis without septic shock; C71.9 Malignant neoplasm of brain, unspecified; Y84.6 Urinary catheterization as the cause of abnormal reaction of the patient, or of later complication, without mention of misadventure at the time of the procedure; G40.909 Epilepsy, unspecified, not intractable, without status epilepticus; Z90.49 Acquired absence of other specified parts of digestive tract; Z90.710 Acquired absence of both cervix and uterus; Z88.1 Allergy status to other antibiotic agents; Z79.899 Other long term (current) drug therapy; Z87.891 Personal history of nicotine dependence; Y92.89 Other specified places as the place of occurrence of the external cause

== ENCOUNTER 2023-06-10 18:32 | Inpatient (IN) | payer OTHER ==
[~2023-06-10] VITALS: Ht 165.1 cm; Wt 75.1 kg
[2023-06-10 19:00] VITALS: BP 143/79
[2023-06-11 08:00] VITALS: BP 151/67
[2023-06-11 16:00] VITALS: BP 144/65
[2023-06-12] VITALS: BP 136/67
[2023-06-12 08:00] VITALS: BP 142/73
[2023-06-12 16:00] VITALS: BP 150/67
[2023-06-12 20:00] VITALS: BP 155/76
[2023-06-13 08:00] VITALS: BP 149/57
== END 2023-06-13 11:47 | disposition hospice, inpatient (51) | DRG 871 ==
LOC: ICCU 18:32
PROVIDERS: ADMIT Family Medicine; ATTEND Family Medicine
PROC: 05HY33Z Insertion of Infusion Device into Upper Vein, Percutaneous Approach (ICD-10-PCS; principal; 2023-06-13)
DX: A41.9 Sepsis, unspecified organism (principal); E43 Unspecified severe protein-calorie malnutrition; C79.9 Secondary malignant neoplasm of unspecified site; N39.0 Urinary tract infection, site not specified; Z51.5 Encounter for palliative care; K74.60 Unspecified cirrhosis of liver; L89.152 Pressure ulcer of sacral region, stage 2; R74.01 Elevation of levels of liver transaminase levels; R65.20 Severe sepsis without septic shock

== ENCOUNTER 2023-06-13 12:00 | Inpatient (IN) | payer OTHER ==
[~2023-06-13] VITALS: Ht 165.1 cm; Wt 74.8 kg
[2023-06-13 12:00] VITALS: BP 128/59
[2023-06-13 16:00] VITALS: BP 135/59
[2023-06-13 20:00] VITALS: BP 147/72
[2023-06-14] VITALS: BP 127/65
[2023-06-14 08:00] VITALS: BP 138/67
[2023-06-14 16:00] VITALS: BP 157/77
[2023-06-14 20:00] VITALS: BP 153/83
[2023-06-15] VITALS: BP 162/80
[2023-06-15 08:00] VITALS: BP 157/84
[2023-06-15 16:00] VITALS: BP 153/76
[2023-06-15 20:00] VITALS: BP 135/73
[2023-06-16] VITALS: BP 137/76
[2023-06-16 08:00] VITALS: BP 141/78
[2023-06-16 12:00] VITALS: BP 131/66
[2023-06-16 16:00] VITALS: BP 138/62
[2023-06-16 20:00] VITALS: BP 136/71
[2023-06-17] VITALS: BP 138/74
[2023-06-17 08:00] VITALS: BP 136/73
[2023-06-17 16:00] VITALS: BP 137/62
[2023-06-18] VITALS: BP 138/68
[2023-06-18 08:00] VITALS: BP 142/70
[2023-06-18 16:00] VITALS: BP 146/71
[2023-06-19] VITALS: BP 140/68
[2023-06-19 08:00] VITALS: BP 161/72
[2023-06-19 12:30] VITALS: BP 136/65
[2023-06-20] VITALS: BP 104/46
[2023-06-20 08:00] VITALS: BP 117/62
== END 2023-06-20 10:58 | DRG 871 ==
LOC: ICCU 12:00 → 4E 06-19 20:35
PROVIDERS: ADMIT Family Medicine; ATTEND Family Medicine
DX: A41.9 Sepsis, unspecified organism (principal); E43 Unspecified severe protein-calorie malnutrition; Z66 Do not resuscitate; C79.9 Secondary malignant neoplasm of unspecified site; N39.0 Urinary tract infection, site not specified; R65.20 Severe sepsis without septic shock; Z51.5 Encounter for palliative care; K74.60 Unspecified cirrhosis of liver; G40.909 Epilepsy, unspecified, not intractable, without status epilepticus